=== PATIENT | male | born 1950 | race Caucasian/White ===

== ENCOUNTER 2022-05-25 16:40 | Inpatient (IN) | payer MEDICARE, OTHER ==
[~2022-05-25] VITALS: Ht 175.3 cm; Wt 70.9 kg
[2022-05-25 16:40] VITALS: BP_SYST 240
--- NOTE | 2022-05-25 16:58 | NUR ---
DR. ALMAZAN AT BEDSIDE TO ASSESS PT.
[2022-05-25] MEDS ORDERED: ALBUTEROL SULFATE 0.083% 2.5 MG/3 ML VIAL.NEB INH ONE (17:00)
--- NOTE | 2022-05-25 17:47 | NUR ---
Placed in room 06 . Placed on cardiac cath rn, blood pressure machine and pulse oximeter. To gown for exam. Side rails up. Report given to GRAHAM NEVILLE.
[2022-05-25 17:53] LABS: BASOPHILS % (AUTO) 0.4 % (0.0-2.0); EOSINOPHILS # (AUTO) 0.3 K/uL (0.0-0.4); EOSINOPHILS % (AUTO) 2.8 % (0.0-4.0); HEMATOCRIT 26.7 % (36-54); HEMOGLOBIN 8.9 g/dL (14.0-18.0); LYMPHOCYTES # (AUTO) 0.5 K/uL (1.0-5.5); LYMPHOCYTES % (AUTO) 4.4 % (20.5-51.5); MEAN CORPUSCULAR HEMOGLOBIN 28 pg (27-31); MEAN CORPUSCULAR HGB CONC 33 % (32-36); MEAN CORPUSCULAR VOLUME 86 fL (79.0-98.0); MONOCYTES # (AUTO) 1.1 K/uL (0.0-1.0); MONOCYTES % (AUTO) 9.7 % (1.7-9.3); NEUTROPHILS # (AUTO) 9.2 K/uL (1.8-7.7); NEUTROPHILS % (AUTO) 82.7 % (40.0-70.0); PLATELET COUNT (AUTO) 225 K/uL (130-430); RED BLOOD CELL COUNT(AUTO) 3.13 MIL/uL (4.2-6.2); RED CELL DISTRIBUTION WIDTH 20.1 % (9.0-15.0); WHITE BLOOD COUNT (AUTO) 11.2 K/uL (4.8-10.8)
--- NOTE | 2022-05-25 18:00 | NUR ---
RECEIVED PT FROM GRAHAM GAGNON. PT BIBA FOR SOB. PT ON SIMPLE MASK AT 8LPM. RESP E/U, SHALLOW, LUNG SOUND DIMINISHED WITH BILTERAL LOWER LOBES RHONCHI. PT IS AAOX4. NSR. DENIES N/V/D/C. PT IS DIALYSIS PT WITH AV SHUNT TO HECTOR BRUIT AND THRILL NOTED. HECTOR PICC LINE IN PLACE WITH 2 LUMENS, BOTH FLUSHED AND SLUGGISH. PT DENIES PAIN. DISTAL PULSES NORMAL, SKIN WARM, NO EDEMA. SIDERAILS UP X2.
[2022-05-25] MEDS ORDERED: PROXL60 PO (18:21)
[2022-05-25] MEDS ORDERED: NEU300 PO (18:21)
[2022-05-25] MEDS ORDERED: LIP10 PO (18:21)
[2022-05-25] MEDS ORDERED: CALC667T6 PO (18:21)
[2022-05-25] MEDS ORDERED: LINA5TAB2 PO (18:21)
[2022-05-25] MEDS ORDERED: DULO20CA PO (18:21)
[2022-05-25] MEDS ORDERED: LEVO100T9 PO (18:21)
[2022-05-25] MEDS ORDERED: SENN8.6T19 PO (18:21)
[2022-05-25] MEDS ORDERED: ASCO500T20 PO (18:21)
[2022-05-25] MEDS ORDERED: CARV3.1246 PO (18:21)
[2022-05-25] MEDS ORDERED: DOXA2TAB PO (18:21)
[2022-05-25] MEDS ORDERED: POLY17PO4 PO (18:21)
[2022-05-25] MEDS ORDERED: INSU100V9 SQ (18:21)
[2022-05-25] MEDS ORDERED: VITD2000 PO (18:21)
[2022-05-25] MEDS ORDERED: HYDR-4037 PO (18:21)
[2022-05-25] MEDS ORDERED: AZAT50TA18 PO (18:21)
[2022-05-25] MEDS ORDERED: CLOP75TA32 PO (18:21)
[2022-05-25] MEDS ORDERED: CYAN100010 PO (18:21)
[2022-05-25] MEDS ORDERED: ASA81 PO (18:21)
[2022-05-25] MEDS ORDERED: INSU100V10 (18:21)
[2022-05-25] MEDS ORDERED: PRED10TA PO (18:21)
[2022-05-25] MEDS ORDERED: FOLI-43 PO (18:21)
--- NOTE | 2022-05-25 18:21 | NUR ---
Medication reconciliation completed with information provided by [facility]. Any prior medication reconciliation on file was reviewed and corrected.
[2022-05-25 18:22] LABS: ALANINE AMINOTRANSFERASE 10 U/L (12-78); ALBUMIN 2.3 g/dL (3.4-4.8); ANION GAP 6 (5-15); ASPARTATE AMINOTRANSFERASE 14 U/L (10-37); CALCIUM 8.3 mg/dL (8.4-11.0); CHLORIDE 96 mmol/L (98-107); CREATININE 3.21 mg/dL (0.55-1.30); GLUCOSE 169 mg/dL (70-99); TOTAL BILIRUBIN 0.3 mg/dL (0.0-1.0); UREA NITROGEN, BLOOD 50 mg/dL (8-21)
[2022-05-25] MEDS ORDERED: PIPERACILLIN/TAZO 3.375 GM in NS 50 ML IV ONE (18:30)
[2022-05-25] MEDS ORDERED: VANCOMYCIN HCL 1,500 MG in NS 250 ML IV SCH (18:30)
--- NOTE | 2022-05-25 18:39 | NUR ---
DR. ALMAZAN MADE AWARE TROPONINS 432. NNOS
[2022-05-25] MEDS ORDERED: PIPERACILLIN/TAZOBACTAM 3.375 GM/VIAL (ZOSYN) IV ONE (18:50)
--- NOTE | 2022-05-25 18:50 | NUR ---
SCHEDULED MEDS GIVEN AND TOLERATED WELL. PT DENIES PAIN.
--- NOTE | 2022-05-25 19:27 | NUR ---
INFLUENZA AND COIVD SWABS COLLECTED AND SENT TO LAB.
--- NOTE | 2022-05-25 19:29 | NUR ---
BELONGINGS COMPLETED. ENDORSED ALL CARE TO GRAHAM SHETTY. ALL QUESTIONS AND CONCERNS ADDRESSED.
[2022-05-25 22:01] LABS: BILIRUBIN,URINE NEGATIVE (NEGATIVE); BLOOD, URINE NEGATIVE (NEGATIVE); CLARITY/URINE CLEAR (CLEAR); COLOR,URINE YELLOW (YELLOW); GLUCOSE,URINE NEGATIVE (NEGATIVE); KETONES,URINE NEGATIVE (NEGATIVE); LEUKOCYTE ESTERASE ,URINE NEGATIVE (NEGATIVE); NITRITE, URINE NEGATIVE (NEGATIVE); PROTEIN URINE 2+ (NEGATIVE); UROBILINOGEN,URINE 0.2 (0.2-1.0)
[2022-05-25 22:10] LABS: BACTERIA,URINE FEW /HPF (None Seen); FINE GRANULAR CASTS,URINE 0-10 /LPF (None Seen); MUCUS,URINE None Seen /LPF (None Seen); RBC,URINE 0-3 /HPF (0-3); WBC,URINE 0-3 /HPF (0-3)
[2022-05-25] MEDS ORDERED: OSELTAMIVIR PHOSPHATE 6 MG/1 ML, 60 ML SUSP PO ONE (22:15)
--- NOTE | 2022-05-25 22:47 | NUR ---
PT RESTING. VSS. NO ACUTE DISTRESS NOTED.
[2022-05-25] MEDS ORDERED: IPRATROPIUM/ALBUTEROL SULFATE 3 ML AMPUL.NEB (DUONEB) INH PRN (23:15)
--- NOTE | 2022-05-25 23:27 | NUR ---
Admit bed requested Patient will be admitted to care of Dr. OWENS. Admitted to TELE unit. Diagnosis INFLUENZA Inpatient (Yes or No) YES Observation (Yes or No) NO Orientation concerns or request close to nursing station (Yes or No) NO Covid Status NEG On vent or bipap NO Isolation requirements YES Needs a sitter NO From Home (Yes or if No enter name of facility) [facility] Requires Dialysis (Yes or No) YES Med Rec Completed (Yes of No) YES
[2022-05-25] MEDS: OSELTAMIVIR PHOSPHATE 75 MG CAPSULE PO SCH (23:52)
--- NOTE | 2022-05-26 | NUR ---
PT RESTING WATCHING TV COMFORTABLY. VSS
[2022-05-26 00:05] VITALS: BP_SYST 158
--- NOTE | 2022-05-26 01:15 | NUR ---
RT AT BEDSIDE
--- NOTE | 2022-05-26 04:28 | NUR ---
Patient resting quietly. No acute distress noted. Vital signs within normal range.
--- NOTE | 2022-05-26 06:27 | NUR ---
Patient resting quietly. No acute distress noted. Vital signs within normal range.
--- NOTE | 2022-05-26 07:27 | NUR ---
RECEIVED REPORT FROM EMILEE STEVENSON. PT IN STABLE CONDITION, IN BED WATCHING TV. PT ON 8 LPM SIMPLE MASK.
[2022-05-26] MEDS ORDERED: ZOLPIDEM TARTRATE 5 MG TABLET PO PRN (07:45)
[2022-05-26] MEDS ORDERED: MORPHINE 2 MG/ML INJ. SYRINGE IVP PRN ×2 (07:45)
[2022-05-26] MEDS ORDERED: NALOXONE HCL 0.4 MG/ML AMP (NARCAN) IVP PRN ×2 (07:45)
[2022-05-26] MEDS ORDERED: ONDANSETRON HCL 4 MG/2 ML VIAL IVP PRN (07:45)
[2022-05-26] MEDS ORDERED: LORazepam 2 MG/ML VIAL IVP PRN (07:45)
[2022-05-26] MEDS ORDERED: MUPIROCIN 2% TOPICAL OINTMENT 22 GM NS PRN (07:45)
[2022-05-26] MEDS ORDERED: ACETAMINOPHEN 325 MG TABLET PO PRN ×2 (07:45→10:30)
[2022-05-26] MEDS ORDERED: DOCUSATE SODIUM 100 MG CAPSULE PO PRN (07:45)
[2022-05-26] MEDS ORDERED: MAGNESIUM SULFATE 50 ML IV PRN (07:45)
[2022-05-26] MEDS ORDERED: POTASSIUM CHLORIDE 20 MEQ TAB.PRT.SR PO PRN (07:45)
[2022-05-26 08:37] LABS: TOTAL IRON BIND. CAPACITY 190 ug/dL (250-450)
[2022-05-26] MEDS: CYANOCOBALAMIN 1000 mCg TABLET PO SCH (09:00)
[2022-05-26] MEDS: NIFEdipine 30 MG TAB.ER.24 PO SCH (09:00)
[2022-05-26] MEDS: CHOLECALCIFEROL (VITAMIN D3) 2,000 UNIT TABLET PO SCH (09:00)
[2022-05-26] MEDS: FOLIC ACID 1 MG TABLET PO SCH (09:00)
[2022-05-26] MEDS: GABAPENTIN 300 MG CAPSULE PO SCH (09:00)
[2022-05-26] MEDS: CLOPIDOGREL BISULFATE 75 MG TABLET PO SCH (09:00)
[2022-05-26] MEDS: ASPIRIN 81 MG TAB.CHEW PO SCH (09:00)
[2022-05-26] MEDS: ASCORBIC ACID 500 MG TABLET PO SCH (09:00)
[2022-05-26] MEDS: ATORVASTATIN 10 MG TABLET PO SCH (09:00)
--- NOTE | 2022-05-26 09:11 | NUR ---
RECEIVED NEW CRITICAL LAB RESULTS OF [address] RICE WAS NIOTIFIED BY PHONE. REPAIR DEPARTMENT SUPERVISOR DR MOJICA WAS INFORMED WHILE HE WAS DOING ROUNDS IN THE ER FLOOR. NNO RECEIVED.
[2022-05-26] MEDS ORDERED: LEVOTHYROXINE SODIUM 0.1 MG TABLET PO ONE (10:30)
[2022-05-26] MEDS ORDERED: PIPERACILLIN/TAZO 2.25G/DEX-IS 50 ML IV SCH (12:00)
--- NOTE | 2022-05-26 13:30 | NUR ---
DR ROBERTS WAS PAGED IN REGARDS TO PT DIAYLSIS ORDER. NEW RESPONSE RECEIVED YET.
--- NOTE | 2022-05-26 14:00 | NUR ---
PT SLEEPING IN BED. VSS. WAITING ON TELE RM.
--- NOTE | 2022-05-26 14:25 | NUR ---
ADMISSION CONSULTS HAVE BEEN CALLED.
--- NOTE | 2022-05-26 17:54 | NUR ---
Patient will be admitted to care of DR RICE. Admitted to TELE unit. Will go to room 130A. Belongings list completed. Complete and up to date summary report printed. SBAR report to be given at bedside with opportunity for questions.
[2022-05-26] MEDS: CALCIUM ACETATE 667 MG CAP PO SCH (18:00)
[2022-05-26 18:15] VITALS: BP_SYST 200
[2022-05-26 20:00] VITALS: BP_SYST 172
--- NOTE | 2022-05-26 20:40 | NUR ---
Received report from GRAHAM Infante.Pt is AOX4.On 6L simple mask.SR on monitor.L upper arm PICC line noted.R AV shunt noted for HD access.HD RN at the bedside.Ongoing dialysis noted.Bed in lowest position.Bedside table and call light are within reach.
--- NOTE | 2022-05-26 21:00 | NUR ---
Spoke to the patient's son at the bedside and updated regarding pt condition.
[2022-05-26] MEDS: INSULIN REGULAR, HUMAN 100 UNITS/ML, 3 ML VIAL (humuLIN R) SUBCUT PRN (21:28)
--- NOTE | 2022-05-26 22:50 | NUR ---
HD done 3 L out per HD RN.Pt tolerated well.
[2022-05-26] MEDS: DULoxetine HCL 20 MG CAPSULE.DR PO SCH (23:01)
[2022-05-26] MEDS: DOXAZOSIN MESYLATE 2 MG TABLET PO SCH (23:02)
[2022-05-26] MEDS: OSELTAMIVIR PHOSPHATE 75 MG CAPSULE PO SCH (23:03)
[2022-05-26] MEDS: hydrALAZINE HCL 10 MG TABLET PO SCH (23:04)
[2022-05-26] MEDS: CARVEDILOL 3.125 MG TABLET (COREG) PO SCH (23:05)
[2022-05-26] MEDS: PIPERACILLIN/TAZO 2.25G/DEX-IS 50 ML IV SCH (23:39)
--- NOTE | 2022-05-27 01:00 | NUR ---
Pt is asleep.Not in respiratory distress noted at this time.
[2022-05-27 01:18] VITALS: BP_SYST 154
--- NOTE | 2022-05-27 04:00 | NUR ---
Kept pt clean and dry.Changed and repositioned pt.
[2022-05-27] MEDS: LEVOTHYROXINE SODIUM 0.1 MG TABLET PO SCH (06:14)
[2022-05-27] MEDS: PIPERACILLIN/TAZO 2.25G/DEX-IS 50 ML IV SCH ×4 (06:14→23:45)
--- NOTE | 2022-05-27 06:18 | NUR ---
Blood glucose and revealed 63 mg/dl.Pt was given with apple juice and custard.
--- NOTE | 2022-05-27 06:25 | NUR ---
Paged Signh regarding the blood glucose 63; awaiting for call back.
--- NOTE | 2022-05-27 06:33 | NUR ---
Rechecked blood glucose and revealed 93 mg/dl.
--- NOTE | 2022-05-27 08:00 | NUR ---
INITIAL NOTE RECEIVED PATIENT A/OX4, NO SIGNS OF DISTRESS /PAIN. PICC LINE TO LEFT UPPER ARM PATENT, ALL SAFETY SECURE CONTINUE TO MONITOR.
--- NOTE | 2022-05-27 08:05 | NUR ---
NOTES DR. RICE OK TO USE PICC LINE
[2022-05-27 08:21] LABS: BASOPHILS # (AUTO) 0.1 K/uL (0.0-0.2); BASOPHILS % (AUTO) 0.8 % (0.0-2.0); EOSINOPHILS # (AUTO) 0.1 K/uL (0.0-0.4); EOSINOPHILS % (AUTO) 2.2 % (0.0-4.0); HEMATOCRIT 25.7 % (36-54); HEMOGLOBIN 8.2 g/dL (14.0-18.0); LYMPHOCYTES # (AUTO) 0.5 K/uL (1.0-5.5); LYMPHOCYTES % (AUTO) 7.6 % (20.5-51.5); MEAN CORPUSCULAR HEMOGLOBIN 28 pg (27-31); MEAN CORPUSCULAR HGB CONC 32 % (32-36); MEAN CORPUSCULAR VOLUME 86 fL (79.0-98.0); MONOCYTES % (AUTO) 14.7 % (1.7-9.3); NEUTROPHILS % (AUTO) 74.7 % (40.0-70.0); PLATELET COUNT (AUTO) 200 K/uL (130-430); RED BLOOD CELL COUNT(AUTO) 2.97 MIL/uL (4.2-6.2); RED CELL DISTRIBUTION WIDTH 20.2 % (9.0-15.0); WHITE BLOOD COUNT (AUTO) 6.7 K/uL (4.8-10.8)
[2022-05-27 08:30] VITALS: BP_SYST 173
[2022-05-27 08:55] LABS: ANION GAP 6 (5-15); CALCIUM 7.6 mg/dL (8.4-11.0); CHLORIDE 101 mmol/L (98-107); CREATININE 2.44 mg/dL (0.55-1.30); GLUCOSE 152 mg/dL (70-99); UREA NITROGEN, BLOOD 34 mg/dL (8-21)
[2022-05-27 09:01] LABS: ALANINE AMINOTRANSFERASE 7 U/L (12-78); ALBUMIN 2.1 g/dL (3.4-4.8); ASPARTATE AMINOTRANSFERASE 19 U/L (10-37); CHOLESTEROL 133 mg/dL (<200); HDL CHOLESTEROL 78 mg/dL (>45); LDL CHOLESTEROL 46 mg/dL (<100); TOTAL BILIRUBIN 0.4 mg/dL (0.0-1.0); TRIGLYCERIDES 74 mg/dL (30-150)
[2022-05-27] MEDS: ASPIRIN 81 MG TAB.CHEW PO SCH (09:52)
[2022-05-27] MEDS: CLOPIDOGREL BISULFATE 75 MG TABLET PO SCH (09:53)
[2022-05-27] MEDS: FOLIC ACID 1 MG TABLET PO SCH (09:53)
[2022-05-27] MEDS: CYANOCOBALAMIN 1000 mCg TABLET PO SCH (09:53)
[2022-05-27] MEDS: CALCIUM ACETATE 667 MG CAP PO SCH ×3 (09:53→17:36)
[2022-05-27] MEDS: GABAPENTIN 300 MG CAPSULE PO SCH (09:53)
[2022-05-27] MEDS: ATORVASTATIN 10 MG TABLET PO SCH (09:54)
[2022-05-27] MEDS: ASCORBIC ACID 500 MG TABLET PO SCH (09:54)
[2022-05-27] MEDS: CHOLECALCIFEROL (VITAMIN D3) 2,000 UNIT TABLET PO SCH (09:54)
[2022-05-27] MEDS: OSELTAMIVIR PHOSPHATE 75 MG CAPSULE PO SCH ×2 (09:54→20:17)
[2022-05-27] MEDS: NIFEdipine 30 MG TAB.ER.24 PO SCH (09:55)
[2022-05-27] MEDS: hydrALAZINE HCL 10 MG TABLET PO SCH ×2 (09:56→20:25)
[2022-05-27] MEDS: CARVEDILOL 3.125 MG TABLET (COREG) PO SCH ×2 (09:57→20:29)
[2022-05-27 11:08] LABS: FOLATE (FOLIC ACID) >20.0 ng/mL (>3.0)
[2022-05-27] MEDS: azaTHIOprine 50 MG TABLET PO SCH (11:35)
[2022-05-27 11:49] VITALS: BP_SYST 165
[2022-05-27 12:13] LABS: FERRITIN 942 ng/mL (30-400)
--- NOTE | 2022-05-27 16:09 | NUR ---
NOTES NOTIFIED DR. KEITH OF CRITICAL [facility] TROPONIN ' STATES " CONTINUE TO MONITOR PATIENT", WILL ENDORSE TO ONCOMING NURSE
[2022-05-27 17:54] VITALS: BP_SYST 169
--- NOTE | 2022-05-27 18:56 | NUR ---
CLOSING NOTES PATIENT STABLE NO DISTRESS, CONTINUE TO MONITOR
[2022-05-27 20:00] VITALS: BP_SYST 174
[2022-05-27] MEDS: DULoxetine HCL 20 MG CAPSULE.DR PO SCH (20:26)
[2022-05-27] MEDS: DOXAZOSIN MESYLATE 2 MG TABLET PO SCH (20:30)
[2022-05-28 00:26] VITALS: BP_SYST 143
[2022-05-28] MEDS: PIPERACILLIN/TAZO 2.25G/DEX-IS 50 ML IV SCH (05:10)
--- NOTE | 2022-05-28 05:33 | NUR ---
Received pt a/ox4. No c/o pain. Sacrum with erythema and covered with optifoam. Pt able to position self from side to side. Pt slept continuously throughout the night.
[2022-05-28] MEDS: LEVOTHYROXINE SODIUM 0.1 MG TABLET PO SCH (06:08)
[2022-05-28 06:49] LABS: BASOPHILS # (AUTO) 0.1 K/uL (0.0-0.2); BASOPHILS % (AUTO) 0.9 % (0.0-2.0); EOSINOPHILS # (AUTO) 0.3 K/uL (0.0-0.4); HEMATOCRIT 23.9 % (36-54); HEMOGLOBIN 7.9 g/dL (14.0-18.0); LYMPHOCYTES # (AUTO) 0.7 K/uL (1.0-5.5); LYMPHOCYTES % (AUTO) 12.9 % (20.5-51.5); MEAN CORPUSCULAR HEMOGLOBIN 28 pg (27-31); MEAN CORPUSCULAR HGB CONC 33 % (32-36); MEAN CORPUSCULAR VOLUME 86 fL (79.0-98.0); MONOCYTES # (AUTO) 0.9 K/uL (0.0-1.0); MONOCYTES % (AUTO) 15.5 % (1.7-9.3); NEUTROPHILS # (AUTO) 3.8 K/uL (1.8-7.7); NEUTROPHILS % (AUTO) 65.7 % (40.0-70.0); PLATELET COUNT (AUTO) 196 K/uL (130-430); RED CELL DISTRIBUTION WIDTH 19.6 % (9.0-15.0); WHITE BLOOD COUNT (AUTO) 5.7 K/uL (4.8-10.8)
[2022-05-28 06:50] LABS: ANION GAP 6 (5-15); CALCIUM 8.2 mg/dL (8.4-11.0); CHLORIDE 101 mmol/L (98-107); CREATININE 3.37 mg/dL (0.55-1.30); GLUCOSE 73 mg/dL (70-99); UREA NITROGEN, BLOOD 54 mg/dL (8-21)
[2022-05-28 06:58] LABS: ALBUMIN 2.2 g/dL (3.4-4.8); ASPARTATE AMINOTRANSFERASE 18 U/L (10-37); TOTAL BILIRUBIN 0.4 mg/dL (0.0-1.0)
[2022-05-28 08:00] VITALS: BP_SYST 167
[2022-05-28] MEDS: CALCIUM ACETATE 667 MG CAP PO SCH ×3 (08:00→17:55)
[2022-05-28 08:12] LABS: ALANINE AMINOTRANSFERASE 10 U/L (12-78)
[2022-05-28] MEDS: NIFEdipine 30 MG TAB.ER.24 PO SCH (09:00)
[2022-05-28] MEDS: LEVOFLOXACIN 250 MG/D5W 50 ML IV SCH (09:00)
[2022-05-28] MEDS: FOLIC ACID 1 MG TABLET PO SCH ×2 (09:00→13:06)
[2022-05-28] MEDS: OSELTAMIVIR PHOSPHATE 75 MG CAPSULE PO SCH ×2 (09:00→22:24)
[2022-05-28] MEDS: hydrALAZINE HCL 10 MG TABLET PO SCH ×2 (09:00→22:26)
[2022-05-28] MEDS: ASPIRIN 81 MG TAB.CHEW PO SCH (09:00)
[2022-05-28] MEDS: ASCORBIC ACID 500 MG TABLET PO SCH (09:00)
[2022-05-28] MEDS: ATORVASTATIN 10 MG TABLET PO SCH (09:00)
[2022-05-28] MEDS: CLOPIDOGREL BISULFATE 75 MG TABLET PO SCH (09:00)
[2022-05-28] MEDS: azaTHIOprine 50 MG TABLET PO SCH (09:00)
[2022-05-28] MEDS: CARVEDILOL 3.125 MG TABLET (COREG) PO SCH ×2 (09:00→22:25)
[2022-05-28] MEDS: CYANOCOBALAMIN 1000 mCg TABLET PO SCH (09:00)
[2022-05-28 11:54] VITALS: BP_SYST 177
[2022-05-28] MEDS: GABAPENTIN 300 MG CAPSULE PO SCH (13:06)
[2022-05-28] MEDS: CHOLECALCIFEROL (VITAMIN D3) 2,000 UNIT TABLET PO SCH (13:07)
--- NOTE | 2022-05-28 13:42 | NUR ---
ROCIO Fuentes instructed me to arrange transfer back to the SNF[facility]. Spoke to nursing supervisor [place], who in turn will speak to their Admission Director, Cori who will give the approval that the pt can come back today. Will wait for their call back.
[2022-05-28 18:08] VITALS: BP_SYST 167
--- NOTE | 2022-05-28 19:09 | NUR ---
Patient has order's to be discharged back to facility where reside's. As of now unable to transfer still waiting on bed assignment or for facility to accept. Patient had dialysis today as extra treatment usually only has dialysis twice a week. No problem's with procedure able to pull 2.5 liter's off with out problem's patient run's high BP's and is on lot's of BP and cardiac med's. All daily morning med's given after dialysis. Patient has PICC line in left forearm receiving [facility] antibiotic treatment to prevent sepsis will continue course once patient is transferred. Very weak unable to get out of bed by self however able to dangle and sit on side of bed for meal's. BS's in control not needing coverage. Right foot drg dry and intact. Admitted with flu and PNA. In good spirit's. Giving report to operations supervisor 2nd shift. Troponin level slight elevated cardiology notified with no order's.
[2022-05-28 20:00] VITALS: BP_SYST 160
[2022-05-28] MEDS: DULoxetine HCL 20 MG CAPSULE.DR PO SCH (21:00)
[2022-05-28] MEDS: DOXAZOSIN MESYLATE 2 MG TABLET PO SCH (22:24)
--- NOTE | 2022-05-29 03:23 | NUR ---
PATIENT ROUNDS Patient initially laying in bed with eyes closed, then said monie when I was leaving. Toileting, food . drink, and repositioning was offered but not needed.
[2022-05-29 06:45] LABS: BASOPHILS % (AUTO) 0.8 % (0.0-2.0); EOSINOPHILS # (AUTO) 0.3 K/uL (0.0-0.4); EOSINOPHILS % (AUTO) 5.4 % (0.0-4.0); HEMATOCRIT 24.3 % (36-54); HEMOGLOBIN 8.1 g/dL (14.0-18.0); LYMPHOCYTES # (AUTO) 0.7 K/uL (1.0-5.5); LYMPHOCYTES % (AUTO) 12.2 % (20.5-51.5); MEAN CORPUSCULAR HEMOGLOBIN 28 pg (27-31); MEAN CORPUSCULAR HGB CONC 33 % (32-36); MEAN CORPUSCULAR VOLUME 84 fL (79.0-98.0); MONOCYTES # (AUTO) 0.8 K/uL (0.0-1.0); MONOCYTES % (AUTO) 12.6 % (1.7-9.3); NEUTROPHILS # (AUTO) 4.1 K/uL (1.8-7.7); PLATELET COUNT (AUTO) 207 K/uL (130-430); RED CELL DISTRIBUTION WIDTH 19.5 % (9.0-15.0)
[2022-05-29 07:15] LABS: ANION GAP 7 (5-15); CALCIUM 7.6 mg/dL (8.4-11.0); CHLORIDE 100 mmol/L (98-107); CREATININE 2.66 mg/dL (0.55-1.30); GLUCOSE 179 mg/dL (70-99); UREA NITROGEN, BLOOD 33 mg/dL (8-21)
[2022-05-29] MEDS: LEVOTHYROXINE SODIUM 0.1 MG TABLET PO SCH (07:54)
[2022-05-29 08:00] VITALS: BP_SYST 148
[2022-05-29 08:17] VITALS: BP_SYST 160
[2022-05-29] MEDS: LEVOFLOXACIN 250 MG/D5W 50 ML IV SCH (09:41)
[2022-05-29] MEDS: ASPIRIN 81 MG TAB.CHEW PO SCH (09:42)
[2022-05-29] MEDS: OSELTAMIVIR PHOSPHATE 75 MG CAPSULE PO SCH ×2 (09:42→21:36)
[2022-05-29] MEDS: ATORVASTATIN 10 MG TABLET PO SCH (09:42)
[2022-05-29] MEDS: ASCORBIC ACID 500 MG TABLET PO SCH (09:42)
[2022-05-29] MEDS: hydrALAZINE HCL 10 MG TABLET PO SCH ×2 (09:42→21:35)
[2022-05-29] MEDS: NIFEdipine 30 MG TAB.ER.24 PO SCH (09:43)
[2022-05-29] MEDS: CALCIUM ACETATE 667 MG CAP PO SCH ×3 (09:43→17:29)
[2022-05-29] MEDS: CYANOCOBALAMIN 1000 mCg TABLET PO SCH (09:43)
[2022-05-29] MEDS: GABAPENTIN 300 MG CAPSULE PO SCH (09:43)
[2022-05-29] MEDS: CHOLECALCIFEROL (VITAMIN D3) 2,000 UNIT TABLET PO SCH (09:44)
[2022-05-29] MEDS: CARVEDILOL 3.125 MG TABLET (COREG) PO SCH ×2 (09:44→21:34)
[2022-05-29] MEDS: CLOPIDOGREL BISULFATE 75 MG TABLET PO SCH (09:44)
[2022-05-29] MEDS: azaTHIOprine 50 MG TABLET PO SCH (09:47)
[2022-05-29 11:45] VITALS: BP_SYST 162
--- NOTE | 2022-05-29 15:12 | NUR ---
Dietitian Recommendations *Continue consistent cho, cardiac, renal, mechanical soft diet GS, RD Please refer to RD Assessment for further details Addendum: 05/29/22 at [address] Amended: Links added.
[2022-05-29 15:50] VITALS: BP_SYST 155
[2022-05-29 20:28] VITALS: BP_SYST 146
[2022-05-29] MEDS: DOXAZOSIN MESYLATE 2 MG TABLET PO SCH (21:33)
[2022-05-29] MEDS: DULoxetine HCL 20 MG CAPSULE.DR PO SCH (21:35)
[2022-05-30 00:51] VITALS: BP_SYST 113
[2022-05-30 03:19] VITALS: BP_SYST 163
[2022-05-30] MEDS: LEVOTHYROXINE SODIUM 0.1 MG TABLET PO SCH (05:24)
--- NOTE | 2022-05-30 06:00 | NUR ---
blood sugar 69, patient asymptomatic, patient refusing to eat, patient encouraged to drink for juice, patient recently had thyroid medication and wanted to wait until after 1 hour, patient encouraged to take juice, patient states "once i eat breakfast, I'll be fine." will recheck blood sugar in 15 min
[2022-05-30 06:37] LABS: BASOPHILS % (AUTO) 0.6 % (0.0-2.0); EOSINOPHILS # (AUTO) 0.3 K/uL (0.0-0.4); EOSINOPHILS % (AUTO) 4.9 % (0.0-4.0); HEMOGLOBIN 8.4 g/dL (14.0-18.0); LYMPHOCYTES # (AUTO) 0.8 K/uL (1.0-5.5); LYMPHOCYTES % (AUTO) 13.7 % (20.5-51.5); MEAN CORPUSCULAR HEMOGLOBIN 28 pg (27-31); MEAN CORPUSCULAR HGB CONC 33 % (32-36); MEAN CORPUSCULAR VOLUME 85 fL (79.0-98.0); MONOCYTES # (AUTO) 0.7 K/uL (0.0-1.0); MONOCYTES % (AUTO) 11.4 % (1.7-9.3); NEUTROPHILS # (AUTO) 4.3 K/uL (1.8-7.7); NEUTROPHILS % (AUTO) 69.4 % (40.0-70.0); PLATELET COUNT (AUTO) 223 K/uL (130-430); RED BLOOD CELL COUNT(AUTO) 3.06 MIL/uL (4.2-6.2); RED CELL DISTRIBUTION WIDTH 19.3 % (9.0-15.0); WHITE BLOOD COUNT (AUTO) 6.2 K/uL (4.8-10.8)
--- NOTE | 2022-05-30 06:45 | NUR ---
recheck glucose level 121, no distress noted, comfort maintained
[2022-05-30 07:06] LABS: ANION GAP 7 (5-15); CALCIUM 8.7 mg/dL (8.4-11.0); CHLORIDE 101 mmol/L (98-107); CREATININE 3.11 mg/dL (0.55-1.30); GLUCOSE 72 mg/dL (70-99); UREA NITROGEN, BLOOD 47 mg/dL (8-21)
[2022-05-30] MEDS: CALCIUM ACETATE 667 MG CAP PO SCH ×3 (08:39→17:50)
[2022-05-30] MEDS: FOLIC ACID 1 MG TABLET PO SCH (08:39)
[2022-05-30] MEDS: ASCORBIC ACID 500 MG TABLET PO SCH (08:39)
[2022-05-30] MEDS: ASPIRIN 81 MG TAB.CHEW PO SCH (08:39)
[2022-05-30] MEDS: CARVEDILOL 3.125 MG TABLET (COREG) PO SCH ×2 (08:40→21:10)
[2022-05-30] MEDS: GABAPENTIN 300 MG CAPSULE PO SCH (08:40)
[2022-05-30] MEDS: CLOPIDOGREL BISULFATE 75 MG TABLET PO SCH (08:41)
[2022-05-30] MEDS: hydrALAZINE HCL 10 MG TABLET PO SCH ×2 (08:41→21:10)
[2022-05-30] MEDS: azaTHIOprine 50 MG TABLET PO SCH (08:42)
[2022-05-30] MEDS: ATORVASTATIN 10 MG TABLET PO SCH (08:42)
[2022-05-30] MEDS: CYANOCOBALAMIN 1000 mCg TABLET PO SCH (08:42)
[2022-05-30] MEDS: LEVOFLOXACIN 250 MG/D5W 50 ML IV SCH (08:43)
[2022-05-30] MEDS: OSELTAMIVIR PHOSPHATE 75 MG CAPSULE PO SCH ×2 (08:44→21:10)
[2022-05-30] MEDS: NIFEdipine 30 MG TAB.ER.24 PO SCH (08:44)
[2022-05-30] MEDS: CHOLECALCIFEROL (VITAMIN D3) 2,000 UNIT TABLET PO SCH (08:44)
--- NOTE | 2022-05-30 11:19 | NUR ---
receive the patient from berny for a change of assignment aox4 .no complain of pain at this time . no sign and symptoms of respiratory distress . will continue to monitor
[2022-05-30] MEDS: INSULIN REGULAR, HUMAN 100 UNITS/ML, 3 ML VIAL (humuLIN R) SUBCUT PRN (17:56)
--- NOTE | 2022-05-30 18:42 | NUR ---
will endorse to shift coordinator rn for continuity of care
--- NOTE | 2022-05-30 19:30 | NUR ---
OPENING NOTE Received SBAR report from GRAHAM Ly. Patient is resting in bed, awake, AOx4. No distress, non labored breathing on 2L NC. He has a PICC to [facility], which is saline locked. Bed is locked in lowest position, side rails up, bed alarm on and call light w/in reach. Updated board and reviewed plan of care.
--- NOTE | 2022-05-30 19:45 | NUR ---
patient care, bed bath Patient is incontinent he voided and had a bowel movement (large, dark brown, firm). He was provided with pericare, CHG bath, new gown, linen, and pad.
[2022-05-30 20:00] VITALS: BP_SYST 159
[2022-05-30] MEDS: DOXAZOSIN MESYLATE 2 MG TABLET PO SCH (21:09)
--- NOTE | 2022-05-30 21:10 | NUR ---
Meds Scheduled meds given. Patient took all meds at one time in cup and swallowed with a drink of water.
[2022-05-30] MEDS: DULoxetine HCL 20 MG CAPSULE.DR PO SCH (21:11)
--- NOTE | 2022-05-30 23:54 | NUR ---
clamy; low blood sugar Patient called and said his linens were wet. He was clamy and sweating. BS was assessed and it was 42mg/dL. He denied other symptoms, was alert awake and able to drink apple juice and sweet snack. He was provided with clean new linen. Fingerstick BS was rechecked and increased to 82mg/dL.
[2022-05-31] VITALS: BP_SYST 132
--- NOTE | 2022-05-31 00:14 | NUR ---
Dr. iVlla Called and notified of critical result blood sugar 42mg/dL. Patient awake, drank apple juice, snack and recheck, glucose level increased to 82mg/dL. Received medication orders D50 - 25ml one time: BEULAH
[2022-05-31] MEDS ORDERED: DEXTROSE 50% JECT 50 ML DISP.SYRIN IVP ONE (00:15)
--- NOTE | 2022-05-31 03:45 | NUR ---
resting Patient resting with eyes closed. Respirations even and nonlabored. Safety and isolation precautions in place.
--- NOTE | 2022-05-31 05:45 | NUR ---
wound care Provided dressing change, wound care to left foot. Cleansed with normal saline, pat dry, covered with non adhesive foam dressing, secured with kirlex. Patient tolerated.
[2022-05-31] MEDS: LEVOTHYROXINE SODIUM 0.1 MG TABLET PO SCH (06:42)
--- NOTE | 2022-05-31 06:50 | NUR ---
nestor BS 104
--- NOTE | 2022-05-31 07:24 | NUR ---
receive the patinet from the maintenance supervisor 2nd shift rn in a stable condition aox4 . no complain of pain at this time . no sign and symptoms of respiratory distress . will continue to monitor
[2022-05-31 07:27] LABS: ANION GAP 5 (5-15); CALCIUM 8.4 mg/dL (8.4-11.0); CHLORIDE 104 mmol/L (98-107); CREATININE 2.38 mg/dL (0.55-1.30); GLUCOSE 147 mg/dL (70-99); UREA NITROGEN, BLOOD 25 mg/dL (8-21)
[2022-05-31 07:44] LABS: BASOPHILS % (AUTO) 0.8 % (0.0-2.0); EOSINOPHILS # (AUTO) 0.2 K/uL (0.0-0.4); EOSINOPHILS % (AUTO) 3.6 % (0.0-4.0); HEMOGLOBIN 9.3 g/dL (14.0-18.0); LYMPHOCYTES # (AUTO) 0.8 K/uL (1.0-5.5); MEAN CORPUSCULAR HEMOGLOBIN 28 pg (27-31); MEAN CORPUSCULAR HGB CONC 33 % (32-36); MEAN CORPUSCULAR VOLUME 84 fL (79.0-98.0); MONOCYTES # (AUTO) 0.8 K/uL (0.0-1.0); MONOCYTES % (AUTO) 11.6 % (1.7-9.3); NEUTROPHILS # (AUTO) 4.8 K/uL (1.8-7.7); PLATELET COUNT (AUTO) 240 K/uL (130-430); RED BLOOD CELL COUNT(AUTO) 3.33 MIL/uL (4.2-6.2); RED CELL DISTRIBUTION WIDTH 18.8 % (9.0-15.0); WHITE BLOOD COUNT (AUTO) 6.6 K/uL (4.8-10.8)
[2022-05-31 08:00] VITALS: BP_SYST 162
[2022-05-31] MEDS: hydrALAZINE HCL 10 MG TABLET PO SCH ×2 (09:21→20:59)
[2022-05-31] MEDS: ASPIRIN 81 MG TAB.CHEW PO SCH (09:22)
[2022-05-31] MEDS: ATORVASTATIN 10 MG TABLET PO SCH (09:22)
[2022-05-31] MEDS: CALCIUM ACETATE 667 MG CAP PO SCH ×3 (09:22→17:26)
[2022-05-31] MEDS: NIFEdipine 30 MG TAB.ER.24 PO SCH (09:22)
[2022-05-31] MEDS: GABAPENTIN 300 MG CAPSULE PO SCH (09:23)
[2022-05-31] MEDS: FOLIC ACID 1 MG TABLET PO SCH (09:23)
[2022-05-31] MEDS: CARVEDILOL 3.125 MG TABLET (COREG) PO SCH ×2 (09:23→21:00)
[2022-05-31] MEDS: CYANOCOBALAMIN 1000 mCg TABLET PO SCH (09:23)
[2022-05-31] MEDS: CLOPIDOGREL BISULFATE 75 MG TABLET PO SCH (09:30)
[2022-05-31] MEDS: LEVOFLOXACIN 250 MG/D5W 50 ML IV SCH (09:30)
[2022-05-31] MEDS: ASCORBIC ACID 500 MG TABLET PO SCH (09:30)
[2022-05-31] MEDS: CHOLECALCIFEROL (VITAMIN D3) 2,000 UNIT TABLET PO SCH (09:30)
[2022-05-31] MEDS: azaTHIOprine 50 MG TABLET PO SCH (09:30)
--- NOTE | 2022-05-31 16:30 | NUR ---
discontinue the telemonitoring .change to med/surg
--- NOTE | 2022-05-31 18:33 | NUR ---
will endorse to svp monetization rn for continuity of care
[2022-05-31 20:56] VITALS: BP_SYST 159
[2022-05-31] MEDS: DULoxetine HCL 20 MG CAPSULE.DR PO SCH (20:58)
[2022-05-31] MEDS: DOXAZOSIN MESYLATE 2 MG TABLET PO SCH (20:59)
--- NOTE | 2022-05-31 21:02 | NUR ---
glucose 169, patient refuse snack, patient states his blood sugar has been dropping at night, patient refuses current dose of sliding scale insulin
[2022-06-01 00:15] VITALS: BP_SYST 146
[2022-06-01] MEDS: LEVOTHYROXINE SODIUM 0.1 MG TABLET PO SCH (06:34)
--- NOTE | 2022-06-01 06:37 | NUR ---
patient left foot dressing is loose, patient refuse to let nurse change dressing, patient requesting wound care nurse, will inform day shift during report
[2022-06-01] MEDS: CALCIUM ACETATE 667 MG CAP PO SCH ×3 (08:00→18:00)
[2022-06-01 08:53] VITALS: BP_SYST 146
[2022-06-01] MEDS: CARVEDILOL 3.125 MG TABLET (COREG) PO SCH ×2 (09:00→21:00)
[2022-06-01] MEDS: CHOLECALCIFEROL (VITAMIN D3) 2,000 UNIT TABLET PO SCH (09:00)
[2022-06-01] MEDS: GABAPENTIN 300 MG CAPSULE PO SCH (09:00)
[2022-06-01] MEDS: ATORVASTATIN 10 MG TABLET PO SCH (09:00)
[2022-06-01] MEDS: CYANOCOBALAMIN 1000 mCg TABLET PO SCH (09:00)
[2022-06-01] MEDS: hydrALAZINE HCL 10 MG TABLET PO SCH (09:00)
[2022-06-01] MEDS: NIFEdipine 30 MG TAB.ER.24 PO SCH (09:00)
[2022-06-01] MEDS: CLOPIDOGREL BISULFATE 75 MG TABLET PO SCH (09:00)
[2022-06-01] MEDS: ASPIRIN 81 MG TAB.CHEW PO SCH (09:00)
[2022-06-01] MEDS: ASCORBIC ACID 500 MG TABLET PO SCH (09:00)
[2022-06-01] MEDS: azaTHIOprine 50 MG TABLET PO SCH (09:00)
[2022-06-01] MEDS: FOLIC ACID 1 MG TABLET PO SCH (09:00)
[2022-06-01] MEDS: LEVOFLOXACIN 250 MG/D5W 50 ML IV SCH (09:00)
[2022-06-01 20:00] VITALS: BP_SYST 151
[2022-06-01] MEDS: DOXAZOSIN MESYLATE 2 MG TABLET PO SCH (21:00)
[2022-06-01 23:59] VITALS: BP_SYST 157
[2022-06-02] MEDS: hydrALAZINE HCL 10 MG TABLET PO SCH ×3 (00:04→09:59)
[2022-06-02] MEDS: DULoxetine HCL 20 MG CAPSULE.DR PO SCH (00:05)
[2022-06-02] MEDS: DOXAZOSIN MESYLATE 2 MG TABLET PO SCH (00:05)
--- NOTE | 2022-06-02 06:30 | NUR ---
total care with adl, no distress noted, comfort maintained, pericare given, redness noted, skin barrier cream applied, patient able to make needs known, voided x1 this shift, incontinent, coarse nonproductive coughing, 02 2l/nc, dialysis scheduled for today
--- NOTE | 2022-06-02 07:00 | NUR ---
Report received from night stocker RN for continuity of care. Patient in stable condition. No distress noted.
[2022-06-02] MEDS: LEVOTHYROXINE SODIUM 0.1 MG TABLET PO SCH (07:11)
[2022-06-02 08:00] VITALS: BP_SYST 154
[2022-06-02] MEDS: GABAPENTIN 300 MG CAPSULE PO SCH (09:00)
[2022-06-02] MEDS: CARVEDILOL 3.125 MG TABLET (COREG) PO SCH (09:59)
[2022-06-02] MEDS: CHOLECALCIFEROL (VITAMIN D3) 2,000 UNIT TABLET PO SCH (10:00)
[2022-06-02] MEDS: CYANOCOBALAMIN 1000 mCg TABLET PO SCH (10:00)
[2022-06-02] MEDS: FOLIC ACID 1 MG TABLET PO SCH (10:00)
[2022-06-02] MEDS: NIFEdipine 30 MG TAB.ER.24 PO SCH (10:00)
[2022-06-02] MEDS: CALCIUM ACETATE 667 MG CAP PO SCH ×2 (10:00→12:00)
[2022-06-02] MEDS: CLOPIDOGREL BISULFATE 75 MG TABLET PO SCH (10:00)
[2022-06-02] MEDS: ASPIRIN 81 MG TAB.CHEW PO SCH (10:00)
[2022-06-02] MEDS: ASCORBIC ACID 500 MG TABLET PO SCH (10:00)
[2022-06-02] MEDS: ATORVASTATIN 10 MG TABLET PO SCH (10:00)
[2022-06-02] MEDS: azaTHIOprine 50 MG TABLET PO SCH (10:01)
[2022-06-02] MEDS: LEVOFLOXACIN 250 MG/D5W 50 ML IV SCH (10:02)
[2022-06-02 11:11] LABS: ANION GAP 5 (5-15); CALCIUM 9.3 mg/dL (8.4-11.0); CHLORIDE 105 mmol/L (98-107); CREATININE 3.61 mg/dL (0.55-1.30); EOSINOPHILS # (AUTO) 0.4 K/uL (0.0-0.4); EOSINOPHILS % (AUTO) 4.7 % (0.0-4.0); GLUCOSE 133 mg/dL (70-99); HEMATOCRIT 27.3 % (36-54); LYMPHOCYTES # (AUTO) 1.4 K/uL (1.0-5.5); LYMPHOCYTES % (AUTO) 18.1 % (20.5-51.5); MEAN CORPUSCULAR HEMOGLOBIN 28 pg (27-31); MEAN CORPUSCULAR HGB CONC 33 % (32-36); MEAN CORPUSCULAR VOLUME 84 fL (79.0-98.0); MONOCYTES # (AUTO) 0.5 K/uL (0.0-1.0); MONOCYTES % (AUTO) 6.7 % (1.7-9.3); NEUTROPHILS # (AUTO) 5.4 K/uL (1.8-7.7); NEUTROPHILS % (AUTO) 70.5 % (40.0-70.0); PLATELET COUNT (AUTO) 275 K/uL (130-430); RED BLOOD CELL COUNT(AUTO) 3.26 MIL/uL (4.2-6.2); RED CELL DISTRIBUTION WIDTH 19.5 % (9.0-15.0); UREA NITROGEN, BLOOD 42 mg/dL (8-21); WHITE BLOOD COUNT (AUTO) 7.7 K/uL (4.8-10.8)
--- NOTE | 2022-06-02 13:29 | NUR ---
Discharge Planning: DCP followed up with [facility] [phone] [facility] [phone] accepted pt Disposition 01
--- NOTE | 2022-06-02 13:36 | NUR ---
Report received from GRAHAM Dumont for dialysis. Patient had 2.6L out. Patient's O2 saturation is 96% on RA.
--- NOTE | 2022-06-02 15:15 | NUR ---
WOUND EVALUATION: Wound Consult received from Dr. Perry. Thank you, Dr. Perry, for the consult. Patient received in a [place] Bed with a mattress, awake, alert, and oriented. Patient is unable to turn independently. Dmitri Score is a 15. Past Medical History: End-Stage Renal Disease, Diabetes Mellitus (dialysis Tuesdays, and Saturdays), Hypertension, Neuropathy, Coronary Artery Disease, Dyslipidemia. In the ER, was diagnosed with possible pneumonia, pulmonary edema, and was positive for influenza. Recent Labs: BBC 7.7, RBC 3.26, hemoglobin 9.0, hematocrit 27.3, BUN 42, creatinine 3.61, glucose 133, BNP 285, serum total protein 5.9, albumin 2.2. Microbiology: Blood culture results x2 negative. Urine culture results positive for yeast. MRSA screen results negative. Intrinsic factors that delay wound healing: End-Stage Renal Disease, Diabetes Mellitus, Neuropathy, Coronary Artery Disease, Hyperglycemia, Hypoalbuminemia. Extrinsic factors that delay wound healing: Decreased mobility. Wound Assessment: 1. Left Lateral Foot near Fifth Metatarsal Head: Diabetic ulcer, present on admission. Wound bed has 100% black tissue. No odor, scant dark red/yellow drainage. Periwound intact, callused. Wound measures 2.2 cm x 2.1 cm x 0.3 cm. 2. Left Lateral Foot, Posterior to Site 1: Diabetic ulcer, present on admission. Wound bed has 100% black tissue. No odor, scant dark red/yellow drainage. Periwound intact, callused. Wound measures 1.4 cm x 2.2 cm x 0.5 cm. Recommend: Cleanse wounds with normal saline. Apply Sureprep to periwound. Apply Therahoney dressings, cut to size, over wound beds. Apply Hydrogel over Therahoney dressings. Cover sites with foam dressings. Wrap with Dav wrap. Perform wound care daily, and as needed for dressing soiling or dislodgment. 3. Left Lateral Foot, Posterior to Site 2: Diabetic ulcer, present on admission. Wound bed has 100% black tissue. No odor, no drainage. Periwound intact. Wound measures 0.5 cm x 2.4 cm. Recommend: [place] wound bed with Betadine. Allow Betadine to air dry. Cover site with foam dressing. Wrap with Dav wrap used with sites 1 and 2. Perform wound care daily, and as needed for dressing soiling or dislodgment. 4. Left Medial Foot: Diabetic Ulcer/Great Toe Amputation Site, present on admission. Wound bed has 35% yellow eschar, 45% black tissue, 10% white tissue, 10% dull pink tissue. No odor, scant yellow drainage. Periwound intact. Wound extends from medial foot to underneath posterior second toe. Wound measures 1.0 cm x 1.0 cm x 0.3 cm. Recommend: Cleanse wound with normal saline. Apply Sureprep to periwound. Apply Therahoney dressing, cut to size, over wound bed. Apply Hydrogel over Therahoney dressing. Cover site with non-adhesive foam dressing(s) cut to size. Wrap with Dav wrap used with sites 1-3. Perform wound care daily, and as needed for dressing soiling or dislodgment. 5. Left Dorsal Second Toe: Diabetic ulcer, present on admission. Wound bed has 100% black eschar. No odor, no drainage. Periwound intact. Wound measures 1.0 cm x 1.0 cm. Recommend: [place] wound bed with Betadine. Allow Betadine to air dry. Cover site with foam dressing. Wrap with Dav wrap along with sites 1-4. Perform wound care daily, and as needed for dressing soiling or dislodgment. Also recommend: Encourage and assist patient as needed with repositioning every 2 hours with pillow support and off-load pressure areas with pillows for pressure re-distribution. Offload, elevate and float bilateral heels with pillows. Perform skin care and monitor skin integrity Q shift. Use moisture barrier cream on buttocks and other moisture susceptible areas QID and as needed for soiling.
[2022-06-02 16:00] VITALS: BP_SYST 138
[2022-06-02 16:25] VITALS: BP_SYST 132
--- NOTE | 2022-06-02 16:41 | NUR ---
Clarified discharge orders with Dr. Perry. Patient completed antibiotic course and discharge as appropriate. Patient's son made aware of situation.
--- NOTE | 2022-06-02 18:12 | NUR ---
Patient was changed into regular clothes and patient transferred by family member from hospital bed to wheelchair and left foot knicked the foot pedal and patient was bleeding. Pressure applied to site and wrapped with krillex. Patient's vital signs were checked and stable. Additional wound care supplies given to patient. ROCIO Fuentes and [facility] Director Alyssia made aware of situation. Patient ok with going home.
[2022-06-02 18:18] VITALS: BP_SYST 132
--- NOTE | 2022-06-02 18:20 | NUR ---
Patient appeared dressed in regular clothes and ready to be discharged. PICC line removed. No distress noted. Extra supplies for patient and patient was able to be escorted to personal vehicle with wheelchair. No distress noted. Patient personal belongings taken with patient. Patient to follow with PCP in one week. Will continue to monitor. Call light within reach.
== END 2022-06-02 22:18 | disposition home health service (06) | DRG 177 ==
LOC: SED 16:40 → STU 23:10 → SMU 06-01 00:25
PROVIDERS: ADMIT General Practice; ATTEND General Practice
PROC: 5A1D70Z Performance of Urinary Filtration, Intermittent, Less than 6 Hours Per Day (ICD-10-PCS; principal; 2022-05-26)
PROC: 5A1D70Z Performance of Urinary Filtration, Intermittent, Less than 6 Hours Per Day (ICD-10-PCS; 2022-05-28)
PROC: 5A1D70Z Performance of Urinary Filtration, Intermittent, Less than 6 Hours Per Day (ICD-10-PCS; 2022-05-30)
PROC: 5A1D70Z Performance of Urinary Filtration, Intermittent, Less than 6 Hours Per Day (ICD-10-PCS; 2022-06-02)
DX: J69.0 Pneumonitis due to inhalation of food and vomit (principal); E43 Unspecified severe protein-calorie malnutrition; I21.A1 Myocardial infarction type 2; I50.43 Acute on chronic combined systolic (congestive) and diastolic (congestive) heart failure; N18.6 End stage renal disease; N17.0 Acute kidney failure with tubular necrosis; I13.2 Hypertensive heart and chronic kidney disease with heart failure and with stage 5 chronic kidney disease, or end stage renal disease; E11.52 Type 2 diabetes mellitus with diabetic peripheral angiopathy with gangrene; J10.1 Influenza due to other identified influenza virus with other respiratory manifestations; E78.5 Hyperlipidemia, unspecified; I25.10 Atherosclerotic heart disease of native coronary artery without angina pectoris; J44.9 Chronic obstructive pulmonary disease, unspecified; E11.40 Type 2 diabetes mellitus with diabetic neuropathy, unspecified; Z20.822 Contact with and (suspected) exposure to COVID-19; D63.8 Anemia in other chronic diseases classified elsewhere; E11.22 Type 2 diabetes mellitus with diabetic chronic kidney disease; Z79.02 Long term (current) use of antithrombotics/antiplatelets; Z79.4 Long term (current) use of insulin; Z79.82 Long term (current) use of aspirin; Z87.891 Personal history of nicotine dependence; Z99.2 Dependence on renal dialysis; Z79.899 Other long term (current) drug therapy; Z68.23 Body mass index [BMI] 23.0-23.9, adult
CPT/HCPCS: 36415; 71045; 80048; 80053; 80061; 81000; 82607; 82728; 82746; 82962; 83036; 83540; 83550; 83605; 83735; 83880; 84484; 85025; 87040; 87081; 87086; 90935; 90937; 93005; 93306; 94640; 94760; 96365; 96368; 97163-GP; 99291; 99292; G0378; G9035; J1815; J1956; J2543; J3370; J7030; J7050; J7500; J7613